=== PATIENT | female | born 2000 | race Hispanic/Latino ===

== ENCOUNTER 2025-07-27 16:37 | Emergency (ER) | payer OTHER ==
[~2025-07-27] VITALS: Ht 160 cm; Wt 69.0 kg
[2025-07-27] MEDS ORDERED: ACET32TAB PO (16:48)
[2025-07-27 17:17] LABS: KETONE, URINE AUTO RFX NEGATIVE (NEGATIVE); LEUKOCYTE ESTERASE UR AUTO RFX NEGATIVE (NEGATIVE); MUCUS, URINE RFX SMALL (NEGATIVE); NITRITE, URINE AUTO RFX NEGATIVE (NEGATIVE); RBC, URINE AUTO RFX 3 /HPF (0-3); SQUAM EPITHELIAL CELL UR AURFX 3 /HPF (0-6); WBC, URINE AUTO RFX 2 /HPF (0-3)
[2025-07-27 18:19] LABS: Trichomonas vaginalis (AMP) NOT DETECTED (NEGATIVE)
[2025-07-27 18:41] LABS: GC DNA AMPLIFICATION NEGATIVE (NEGATIVE)
[2025-07-27 19:45] LABS: HCG, SERUM QUALITATIVE NEGATIVE (NEGATIVE)
[2025-07-27] MEDS ORDERED: DOXY-441 PO (19:51)
[2025-07-27] MEDS ORDERED: METR-265 PO (19:51)
[2025-07-27 19:54] VITALS: BP 123/70; TEMP 99; O2SAT 99
[2025-07-27] MEDS: LIDOCAINE 1% SDV 5 ML VIAL DILUENT ONE (20:13)
== END 2025-07-27 20:23 | disposition home or self-care (01) ==
LOC: M ED 16:37
DX: Z20.3 Contact with and (suspected) exposure to rabies (principal); N89.8 Other specified noninflammatory disorders of vagina; Z91.02 Food additives allergy status; Z79.1 Long term (current) use of non-steroidal anti-inflammatories (NSAID); Z79.2 Long term (current) use of antibiotics; Z79.899 Other long term (current) drug therapy
CPT/HCPCS: 81001; 84703; 87661; 87810; 87850; 96372; 99283; J0696